=== PATIENT | male | born 1940 | race Caucasian/White ===

== ENCOUNTER 2019-01-05 17:31 | Inpatient (IN) | payer OTHER, MEDICARE ==
[2019-01-05 19:50] LABS: Absolute Lymphocytes (CBC) 0.6 K/uL (0.7-4.9); Absolute Monocytes 0.5 K/uL (0.1-1.3); Absolute Neutrophil 3.1 K/uL (1.8-8.0); Basophils % 0.2 % (0-1.3); Eosinophils % 0.1 % (0-4.4); Hematocrit 31.1 % (39.6-49.0); MPV 9.3 fL (7.6-11.3); Monocytes % 12.2 % (3.3-12.3); RBC Red Blood Cell Count 3.21 M/uL (4.33-5.43)
[2019-01-05] MEDS ORDERED: ONDANSETRON 4 MG/2 ML VIAL ONE (19:56)
[2019-01-05] MEDS ORDERED: NA CHLORIDE 0.9% 500 ML ONE ×2 (19:56→23:11)
[2019-01-05 20:28] LABS: Albumin 3.2 g/dL (3.4-5.0); Bilirubin Direct 0.2 mg/dL (0-0.2); Bilirubin Total 0.4 mg/dL (0.2-1.0); Potassium 3.9 mmol/L (3.5-5.1)
--- NOTE | 2019-01-05 20:43 | RAD REPORT ---
EXAM DESCRIPTION: RAD - Chest Single View - 01/05/2019 8:37 pm CLINICAL HISTORY: Fever, vomiting, shortness of breath COMPARISON: September 2016 TECHNIQUE: AP portable chest image was obtained 1934 hours . FINDINGS: Airspace consolidation is present in the right base obscuring the hemidiaphragm and partia lly obscuring right heart border. Patient has overall prominence of the interstitial markings through out both lung pang in part due to shallow inspiration. Significant failure or volume overload are d oubtful. Heart and vasculature are normal. No measurable pleural effusion and no pneumothorax. No acu te bony abnormality seen. No acute aortic findings suspected. IMPRESSION: Moderate-size right lung base pneumonia.
[2019-01-05 21:14] LABS: Urine White Blood Cell Casts OK
[2019-01-05 21:15] LABS: Anisocytosis 1+; Blood Morphology Comment NOTED (NOT SEEN); Platelet Estimate ADEQ
[2019-01-05] MEDS ORDERED: NA CHLORIDE 0.9% 250 ML ONE (21:36)
[2019-01-05] MEDS ORDERED: LEVALBUTEROL 1.25 MG/3 ML NEB ONE (21:36)
[2019-01-05] MEDS ORDERED: CEFTRIAXONE/SWI 1gm 1 GM/10 ML SYR ONE (21:36)
[2019-01-05] MEDS ORDERED: AZITHROMYCIN 500 MG INJ IVPB ONE (21:36)
--- NOTE | 2019-01-05 22:48 | ER ---
Nurse's Notes [facility] Name: King Hollingsworth Age: 78 yrs Sex: Male : 1940 Arrival Date: 01/05/2019 Time: 17:33 Bed 24 Private MD: Diagnosis: Pneumonia;Hypoxemia;Dehydration Presentation: 01/05 17:58 Presenting complaint: Patient states: Pt reports vomiting and 100.4 fever this morning. ea Pt reports he started feeling short of breath since yesterday. Transition of care: patient was not received from another setting of care. Onset of symptoms was January 05, 2019. Risk Assessment: Do you want to hurt yourself or someone else? Patient reports no desire to harm self or others. Initial Sepsis Screen: Does the patient meet any 2 criteria? RR > 20 per min. HR > 90 bpm. Yes Does the patient have a suspected source of infection? Yes: Productive cough/pneumonia. Care prior to arrival: None. 17:58 Method Of Arrival: Ambulatory ea 17:58 Acuity: OTTO 3 ea Triage Assessment: 18:07 General: Appears uncomfortable, Behavior is appropriate for age. Pain: Denies pain. ea Neuro: Level of Consciousness is awake, alert, obeys commands, Oriented to person, place, time, situation. Cardiovascular: Patient's skin is warm and dry. Respiratory: Airway is patent Respiratory effort is even, unlabored, Respiratory pattern is tachypnea. GI: Reports diarrhea. Derm: Skin is pale. Historical: - Allergies: 18:06 Indocin; ea - Home Meds: 18:06 latanoprost ophthalmic ophthalmic [Active]; Doxycycline Oral [Active]; ea - PMHx: 18:06 Hypertension; Hyperlipidemia; Diabetes - IDDM; BPH; ea - PSHx: 18:06 hip replacement; neck surgery; ea - Immunization history:: Adult Immunizations up to date. - Social history:: Smoking status: Patient/guardian denies using tobacco. - Ebola Screening: : No symptoms or risks identified at this time. - Family history:: not pertinent. - Hospitalizations: : No recent hospitalization is reported. Screenin:15 Abuse screen: Denies threats or abuse. Denies injuries from another. Nutritional ca1 screening: No deficits noted. Tuberculosis screening: No symptoms or risk factors identified. Fall Risk None identified. Assessment: 18:15 General: Appears in no apparent distress. comfortable, Behavior is calm, cooperative, ca1 appropriate for age. General: Reports chills for 0-12 hours, fever for 0-12 hours, Tmax at 100.4 this morning. PT is diagnosed with lung cancer and undergoing chemotherapy. Last chemo session was 2 weeks ago. Pt instructed to visit the ER for any fever and chills. . Pain: Pain: Denies pain. Pain: Pain began pt as arthritic pains that is tolerable. Neuro: Level of Consciousness is awake, alert, obeys commands, Oriented to person, place, time, situation. Cardiovascular: Heart tones S1 S2 present Capillary refill < 3 seconds Patient's skin is warm and dry. Respiratory: Reports shortness of breath on exertion Airway is patent Respiratory effort is even, unlabored, Respiratory pattern is regular, symmetrical, Breath sounds are clear bilaterally. GI: Abdomen is flat, non-distended, Bowel sounds present X 4 quads. Abd is soft and non tender X 4 quads. Reports nausea, vomiting, loose stool this morning. : No deficits noted. No signs and/or symptoms were reported regarding the genitourinary system. EENT: No deficits noted. No signs and/or symptoms were reported regarding the EENT system. Derm: Skin is fragile, Skin is dry, Skin is pale, Skin temperature is warm. Musculoskeletal: Circulation, motion, and sensation intact. Capillary refill < 3 seconds. 19:10 Reassessment: Patient appears in no apparent distress at this time. Patient and/or ca1 family updated on plan of care and expected duration. Pain level reassessed. Patient is alert, oriented x 3, equal unlabored respirations, skin warm/dry/pink. 20:05 Reassessment: Patient appears in no apparent distress at this time. Patient and/or ca1 family updated on plan of care and expected duration. Pain level reassessed. Patient is alert, oriented x 3, equal unlabored respirations, skin warm/dry/pink. 21:00 Reassessment: Patient appears in no apparent distress at this time. Patient and/or ca1 family updated on plan of care and expected duration. Pain level reassessed. Patient is alert, oriented x 3, equal unlabored respirations, skin warm/dry/pink. Pt from CT scan. 21:59 Reassessment: Patient appears in no apparent distress at this time. Patient and/or ca1 family updated on plan of care and expected duration. Pain level reassessed. Patient is alert, oriented x 3, equal unlabored respirations, skin warm/dry/pink. Pt went to restroom twice since arrival to ER. Pt reports of having loose yellow stool at each visit to restroom. 22:50 Reassessment: Patient appears in no apparent distress at this time. Patient and/or ca1 family updated on plan of care and expected duration. Pain level reassessed. Patient is alert, oriented x 3, equal unlabored respirations, skin warm/dry/pink. Pt did not visit restroom for loose stool as of this time. 23:49 Reassessment: Dr. Novak at bedside. ca1 01/06 00:02 Reassessment: Called 2nd floor for report, receiving RN will call back. ca1 00:12 Reassessment: Patient appears in no apparent distress at this time. Patient and/or ca1 family updated on plan of care and expected duration. Pain level reassessed. Patient is alert, oriented x 3, equal unlabored respirations, skin warm/dry/pink. 00:20 Reassessment: Pt stable, alert and oriented x 4, ambulatory. ca1 Vital Signs: 01/05 18:06 BP 100 / 60; Pulse 118; Resp 24; Temp 98.8; Pulse Ox 91% on R/A; Weight 73.48 kg; ea Height 5 ft. 9 in. (175.26 cm); Pain 0/10; 19:00 BP 134 / 78; Pulse 112; Resp 21; Pulse Ox 98% on R/A; ca1 20:00 BP 127 / 85; Pulse 110; Resp 19; Pulse Ox 95% on R/A; ca1 21:00 BP 127 / 79; Pulse 114; Resp 21; Pulse Ox 97% on R/A; ca1 22:01 BP 127 / 83; Pulse 115; Resp 20; Pulse Ox 98% on R/A; ca1 22:45 BP 120 / 66; Pulse 119; Resp 22; Pulse Ox 95% on R/A; ca1 22:45 BP 105 / 72; Pulse 115; Resp 22; Pulse Ox 95% on R/A; ca1 23:15 BP 101 / 64; Pulse 116; Resp 22; Pulse Ox 92% on R/A; ca1 23:40 BP 116 / 59; Pulse 103; Resp 21; Temp 98.3; Pulse Ox 98% on 2 lpm NC; ca1 01/06 00:12 BP 128 / 68; Pulse 102; Resp 19; Pulse Ox 95% on 2 lpm NC; ca1 00:19 BP 123 / 69; Pulse 106; Resp 19; Pulse Ox 98% on 2 lpm NC; ca1 01/05 18:06 Body Mass Index 23.92 (73.48 kg, 175.26 cm) ED Course: 01/05 17:33 Patient arrived in ED. rg4 18:00 Triage completed. ea 18:07 Kaley Lott, RN is Primary Nurse. ca1 18:10 Arm band placed on right wrist. ca1 18:15 Patient has correct armband on for positive identification. Bed in low position. Call ca1 light in reach. Side rails up X 1. Pulse ox on. NIBP on. Warm blanket given. 19:00 Raffy Lopez MD is Attending Physician. rn 19:43 Inserted saline lock: 22 gauge in left antecubital area, using aseptic technique. ca1 ,using aseptic technique. Alin Clements RN. 19:45 Initial lab(s) drawn, by ED staff, sent to lab. First set of blood cultures drawn. ca1 20:00 Second set of blood cultures drawn by Nando Javier. ca1 20:37 XRAY Chest (1 view) In Process Unspecified. EDMS 22:00 Abdomen In Process Unspecified. EDMS 22:47 Karlos Novak MD is Hospitalizing Provider. rn 01/06 00:05 No provider procedures requiring assistance completed. Patient admitted, IV remains in ca1 place. Administered Medications: 01/05 19:30 Drug: NS 0.9% 500 ml Route: IV; Rate: bolus; Site: left forearm; ca1 20:15 Follow up: IV Status: Completed infusion ca1 19:31 Drug: Zofran 4 mg Route: IVP; Site: left forearm; ca1 20:30 Follow up: Response: No adverse reaction; Nausea is decreased ca1 21:20 Drug: Xopenex 1.25 mg Route: Inhalation; rv 21:30 Drug: Rocephin - (cefTRIAXone) 1 grams Route: IVPB; Infused Over: 30 mins; Site: left rv forearm; 22:15 Follow up: IV Status: Completed infusion; IVP per pharmacy protocol ca1 23:51 Follow up: Response: No adverse reaction ca1 21:35 Drug: Zithromax 500 mg Route: IVPB; Infused Over: 1 hrs; Site: left forearm; rv 22:30 Follow up: Response: No adverse reaction; IV Status: Completed infusion ca1 23:03 Drug: NS 0.9% 500 ml Route: IV; Rate: bolus; Site: left forearm; ca1 23:52 Follow up: Response: No adverse reaction; IV Status: Completed infusion ca1 Outcome: 22:48 Decision to Hospitalize by Provider. rn 01/06 00:21 Admitted to Med/surg accompanied by nurse, via wheelchair, room 230, with chart, Report ca1 called to Nicole Montana RN 00:21 Condition: stable ca1 00:48 Patient left the ED. ca1 Signatures: Dispatcher [employer] EDMS Raffy Lopez MD MD rn Garcia, Rubi rg4 Oliva Murray RN Alin Cochran ea, RN RN rv AcKaley angulo RN RN ca1 Corrections: (The following items were deleted from the chart) 01/05 21:59 21:53 Reassessment: Patient appears in no apparent distress at this time. Patient ca1 and/or family updated on plan of care and expected duration. Pain level reassessed. Patient is alert, oriented x 3, equal unlabored respirations, skin warm/dry/pink. Pt from CT scan ca1
--- NOTE | 2019-01-05 22:48 | EDPHYS ---
Physician Documentation [facility] Name: King Hollingsworth Age: 78 yrs Sex: Male : 1940 Arrival Date: 01/05/2019 Time: 17:33 Bed 24 Private MD: ED Physician Raffy Lopez HPI: 01/05 19:28 This 78 yrs old Male presents to ER via Ambulatory with complaints of Fever, rn Vomiting. 19:28 The patient reports fever, not measured (subjective). Onset: The symptoms/episode rn began/occurred today. Modifying factors: there are no obvious modifying factors. Severity of symptoms: At their worst the symptoms were mild in the emergency department the symptoms are unchanged. The patient has not experienced similar symptoms in the past. The patient has not recently seen a physician. Reports subjective fever, vomiting, cough, sob, reports last chemo for lung cancer 2 weeks ago at [place]. No abd pain. Reports feels weak and dehydrated.. Historical: - Allergies: 18:06 Indocin; ea - Home Meds: 18:06 latanoprost ophthalmic ophthalmic [Active]; Doxycycline Oral [Active]; ea - PMHx: 18:06 Hypertension; Hyperlipidemia; Diabetes - IDDM; BPH; ea - PSHx: 18:06 hip replacement; neck surgery; ea - Immunization history:: Adult Immunizations up to date. - Social history:: Smoking status: Patient/guardian denies using tobacco. - Ebola Screening: : No symptoms or risks identified at this time. - Family history:: not pertinent. - Hospitalizations: : No recent hospitalization is reported. ROS: 19:28 Constitutional: + fever and chills Eyes: Negative for injury, pain, redness, and internal carver, Neck: Negative for injury, pain, and swelling, Cardiovascular: Negative for chest pain, palpitations, and edema, Respiratory: + cough and sob Abdomen/GI: + nausea/vomiting MS/Extremity: Negative for injury and deformity, Skin: Negative for injury, rash, and discoloration, Neuro: Negative for headache,numbness, tingling, and seizure. Exam: 19:28 Constitutional: This is a well developed, well nourished patient who is awake, alert, rn and in no acute distress. Head/Face: Normocephalic, atraumatic. ENT: dry MM Cardiovascular: Tachycardic, regular, no murmur Respiratory: + mild tachypnea with dimnished breath sounds bilateral bases Abdomen/GI: soft, non-tender MS/ Extremity: Pulses equal, no cyanosis. Neurovascular intact. Full, normal range of motion. Equal circumference. Neuro: Awake and alert, GCS 15, oriented to person, place, time, and situation. Cranial nerves II-XII grossly intact. Motor strength 4/5 in all extremities. Sensory grossly intact Vital Signs: 18:06 BP 100 / 60; Pulse 118; Resp 24; Temp 98.8; Pulse Ox 91% on R/A; Weight 73.48 kg; ea Height 5 ft. 9 in. (175.26 cm); Pain 0/10; 19:00 BP 134 / 78; Pulse 112; Resp 21; Pulse Ox 98% on R/A; ca1 20:00 BP 127 / 85; Pulse 110; Resp 19; Pulse Ox 95% on R/A; ca1 21:00 BP 127 / 79; Pulse 114; Resp 21; Pulse Ox 97% on R/A; ca1 22:01 BP 127 / 83; Pulse 115; Resp 20; Pulse Ox 98% on R/A; ca1 22:45 BP 120 / 66; Pulse 119; Resp 22; Pulse Ox 95% on R/A; ca1 22:45 BP 105 / 72; Pulse 115; Resp 22; Pulse Ox 95% on R/A; ca1 23:15 BP 101 / 64; Pulse 116; Resp 22; Pulse Ox 92% on R/A; ca1 23:40 BP 116 / 59; Pulse 103; Resp 21; Temp 98.3; Pulse Ox 98% on 2 lpm NC; ca1 01/06 00:12 BP 128 / 68; Pulse 102; Resp 19; Pulse Ox 95% on 2 lpm NC; ca1 00:19 BP 123 / 69; Pulse 106; Resp 19; Pulse Ox 98% on 2 lpm NC; ca1 01/05 18:06 Body Mass Index 23.92 (73.48 kg, 175.26 cm) ea MDM: 01/05 19:00 Patient medically screened. rn 22:46 Differential diagnosis: viral Infection, bacterial infection, pneumonia. Data reviewed: rn vital signs, nurses notes, lab test result(s), radiologic studies, CT scan, plain films, and as a result, I will admit patient. Counseling: I had a detailed discussion with the patient and/or guardian regarding: the historical points, exam findings, and any diagnostic results supporting the discharge/admit diagnosis, lab results, radiology results, the need for further work-up and treatment in the hospital. 22:47 Response to treatment: the patient's symptoms have mildly improved after treatment. advisory intern orders: after a detailed discussion of the patient's condition and case, the admit orders are written by me. 01/05 19:11 Order name: Basic Metabolic Panel; Complete Time: 20:58 rn 01/05 19:11 Order name: CBC with Diff; Complete Time: 21:36 rn 01/05 19:11 Order name: Hepatic Function; Complete Time: 20:58 rn 01/05 19:11 Order name: Lipase; Complete Time: 20:58 rn 01/05 19:11 Order name: Flu; Complete Time: 20:58 rn 01/05 19:11 Order name: Blood Culture Adult (2) rn 01/05 19:11 Order name: XRAY Chest (1 view); Complete Time: 20:58 rn 01/05 19:11 Order name: Procalcitonin; Complete Time: 20:58 rn 01/05 21:15 Order name: CBC Smear Scan; Complete Time: 21:36 EDMS 01/05 21:37 Order name: Abdomen EDNE 01/05 19:11 Order name: IV Saline Lock; Complete Time: 19:43 rn 01/05 19:11 Order name: Labs collected and sent; Complete Time: 19:43 rn Administered Medications: 19:30 Drug: NS 0.9% 500 ml Route: IV; Rate: bolus; Site: left forearm; ca1 20:15 Follow up: IV Status: Completed infusion ca1 19:31 Drug: Zofran 4 mg Route: IVP; Site: left forearm; ca1 20:30 Follow up: Response: No adverse reaction; Nausea is decreased ca1 21:20 Drug: Xopenex 1.25 mg Route: Inhalation; rv 21:30 Drug: Rocephin - (cefTRIAXone) 1 grams Route: IVPB; Infused Over: 30 mins; Site: left rv forearm; 22:15 Follow up: IV Status: Completed infusion; IVP per pharmacy protocol ca1 23:51 Follow up: Response: No adverse reaction ca1 21:35 Drug: Zithromax 500 mg Route: IVPB; Infused Over: 1 hrs; Site: left forearm; rv 22:30 Follow up: Response: No adverse reaction; IV Status: Completed infusion ca1 23:03 Drug: NS 0.9% 500 ml Route: IV; Rate: bolus; Site: left forearm; ca1 23:52 Follow up: Response: No adverse reaction; IV Status: Completed infusion ca1 Disposition: 01/05/19 22:48 Hospitalization ordered by Karlos Novak for Inpatient Admission. Preliminary diagnosis are Pneumonia, Hypoxemia, Dehydration. - Bed requested for Telemetry/MedSurg (Inpatient). - Status is Inpatient Admission. ca1 - Condition is Stable. - Problem is new. - Symptoms have improved. UTI on Admission? No Signatures: Dispatcher [employer] EDNE Raffy Lopez MD MD rn Garcia, Cindy RN JENNA cg Oliva Murray RN Alin Cochran ea RN RN rv Acob, Kaley RN RN ca1 Corrections: (The following items were deleted from the chart) 21:37 19:12 Abdomen Pelvis W Con+CT.RAD.BRZ ordered. [facility] EDNE 23:54 22:48 Hospitalization Ordered by Karlos Novak MD for Inpatient Admission. Preliminary cg diagnosis is Pneumonia; Hypoxemia; Dehydration. Bed requested for Telemetry/MedSurg (Inpatient). Status is Inpatient Admission. Condition is Stable. Problem is new. Symptoms have improved. UTI on Admission? No. rn 01/06 00:48 01/05 23:54 01/05/2019 22:48 Hospitalization Ordered by Karlos Novak MD for Inpatient ca1 Admission. Preliminary diagnosis is Pneumonia; Hypoxemia; Dehydration. Bed requested for Telemetry/MedSurg (Inpatient). Status is Inpatient Admission. Condition is Stable. Problem is new. Symptoms have improved. UTI on Admission? No. cg
--- NOTE | 2019-01-06 00:16 | P.HP ---
Certification for Inpatient Patient admitted to: Inpatient With expected LOS: >2 Midnights Practitioner: I am a practitioner with admitting privileges, knowledge of patient current condition, hospital course, and medical plan of care. Services: Services provided to patient in accordance with Admission requirements found in Title 42 Section 412.3 of the Code of Federal Regulations Patient History Date of Service: 01/06/19 Reason for admission: pneumonia History of Present Illness: Mr Hollingsworth is a 78 years old male with history of DM II, lung cancer on chemotherapy treatment, last round was about 2 weeks ago, he came to ED complaining of fever, nausea and vomiting, SOB and cough. He denied any chest pain. In ED, his temp was 98.8F, O2 sat 91% on RA, BP on the lower side, tachycardic. CXR shows right lower lobe pneumonia. CT abd/pelvis shows no acute abnormalities. Allergies indomethacin [From Indocin] Adverse Reaction (Verified 11/26/14 15:45) Shortness of breath indomethacin sodium [From Indocin] Adverse Reaction (Verified 11/26/14 15:45) Shortness of breath Home medications list reviewed: Yes Home Medications: Finasteride [Proscar*] 5 mg PO DAILY 11/26/14 Losartan Potassium [Cozaar] 100 mg PO DAILY WITH BREAKFAST 11/26/14 Lovastatin [Mevacor] 20 mg PO BEDTIME 11/26/14 Methotrexate Sodium [Trexall] 20 mg PO EVERY 7TH DAY 11/26/14 Metoprolol Succinate [Toprol Xl*] 100 mg PO BID 11/26/14 Mineral Oil/Petrolatum,White [Lacri-Lube S.o.p. Ointment] 3.5 gm OP BEDTIME 07/02 Polysorbate 80/Glycerin [Refresh Dry Eye Therapy Drops] 1 each OP QID 11/26/14 Rabeprazole Sodium [Aciphex] 20 mg PO DAILY 11/26/14 hydroCHLOROthiazide [Hydrodiuril] 25 mg PO DAILY 11/26/14 Cephalexin [Keflex] 500 mg PO DAILY #14 cap 12/01/14 Tamsulosin [Flomax] 0.4 mg PO DAILY #14 cap 12/01/14 Hydrocodone 7.5/APAP 325 [[place] 7.5/325 mg] 1 tab PO Q6H PRN #50 tab 12/02/14 Iron/FA/Vit B-Com W/C [Hemocyte Plus*] 1 tab PO DAILY 21 Days tab 12/02/14 Warfarin Sodium [Coumadin*] 4 mg PO DAILY 24 Days tab 12/02/14 - Past Medical/Surgical History Diabetic: Yes -: hypertension -: arthritis -: prediabetis -: lung cancer -: left hip replacement -: neck surg -: skin cancer to nose - Family History Family History: Reviewed- Non-Contributory - Social History Smoking Status: Former smoker Alcohol use: No CD- Drugs: No Caffeine use: Yes Place of Residence: Home Review of Systems 10-point ROS is otherwise unremarkable Physical Examination - Physical Exam General: Alert, In no apparent distress HEENT: Atraumatic, PERRLA, Mucous membr. moist/pink, EOMI, Sclerae nonicteric Neck: Supple, 2+ carotid pulse no bruit, No LAD, Without JVD or thyroid abnormality Respiratory: Diminished, Crackles/rales (right base) Cardiovascular: Normal S1 S2, No gallops Gastrointestinal: Normal bowel sounds, No tenderness Musculoskeletal: No tenderness Integumentary: No rashes Neurological: Normal speech, Normal strength at 5/5 x4 extr, Normal tone, Normal affect Lymphatics: No axilla or inguinal lymphadenopathy - Studies Laboratory Data (last 24 hrs) 01/05/19 20:00: Sodium 138, Potassium 3.9, BUN 30 H, Creatinine 1.51 H, Glucose 149 H, Total Bilirubin 0.4, AST 33, ALT 29, Alkaline Phosphatase 82, Lipase 240 01/05/19 19:45: WBC 4.2 L, Hgb 10.2 L, Hct 31.1 L, Plt Count 109 L Microbiology Data (last 24 hrs): 01/05/19 19:40 Nasopharnyx Influenza Type A Antigen Screen - Final 01/05/19 19:40 Nasopharnyx Influenza Type B Antigen Screen - Final Assessment and Plan - Problems (Diagnosis) (1) Pneumonia Current Visit: Yes Status: Acute Qualifiers: Pneumonia type: due to unspecified organism Laterality: right Lung location: lower lobe of lung Qualified Code(s): J18.1 - Lobar pneumonia, unspecified organism (2) Lung cancer Current Visit: Yes Status: Acute Qualifiers: Laterality: unspecified laterality Lung location: unspecified part of lung Qualified Code(s): C34.90 - Malignant neoplasm of unspecified part of unspecified bronchus or lung (3) Diabetes mellitus Current Visit: Yes Status: Acute Qualifiers: Diabetes mellitus type: type 2 Diabetes mellitus terminal operator insulin use: without terminal operator use Diabetes mellitus complication status: with unspecified complications Qualified Code(s): E11.8 - Type 2 diabetes mellitus with unspecified complications (4) BPH (benign prostatic hyperplasia) Current Visit: Yes Status: Acute Qualifiers: Lower urinary tract symptom presence: unspecified whether lower urinary tract symptoms present Qualified Code(s): N40.0 - Benign prostatic hyperplasia without lower urinary tract symptoms - Plan Will admit the patient due to pneumonia. influenza screening is negative. Will order IV Rocephin and Azithromycin, IV fluids. Continue SSI for BS control. - Advance Directives Does patient have a Living Will: Yes Does patient have a Durable POA for Healthcare: Yes - Code Status/Comfort Care Code Status Assessed: Yes Code Status: Full Code
[2019-01-06] MEDS ORDERED: ONDANSETRON 4 MG/2 ML VIAL IV PRN (00:35)
[2019-01-06] MEDS ORDERED: ACETAMINOPHEN 500 MG TAB PO PRN (00:35)
[2019-01-06] MEDS: NA CHLORIDE 0.9% 1,000 ML IV SCH ×4 (01:27→20:35)
[2019-01-06 05:15] LABS: Absolute Lymphocytes (CBC) 0.6 K/uL (0.7-4.9); Absolute Monocytes 0.5 K/uL (0.1-1.3); Absolute Neutrophil 1.7 K/uL (1.8-8.0); Basophils % 0.2 % (0-1.3); Eosinophils % 0.1 % (0-4.4); Hematocrit 23.2 % (39.6-49.0); Lymphocytes % 21.9 % (15.3-44.8); MPV 9.6 fL (7.6-11.3); Monocytes % 17.8 % (3.3-12.3)
[2019-01-06 05:44] LABS: Potassium 3.4 mmol/L (3.5-5.1)
[2019-01-06 05:45] LABS: Magnesium 0.6 mg/dL (1.8-2.4)
[2019-01-06] MEDS ORDERED: MAGNESIUM 50% 3 GM in NA CHLORIDE 0.9% 100 ML IV ONE (05:52)
[2019-01-06] MEDS ORDERED: POTASSIUM CL SA 10 MEQ TAB PO ONE (05:53)
[2019-01-06 06:51] LABS: Urine Appearance CLEAR; Urine Blood NEGATIVE (NEG); Urine Color YELLOW; Urine Glucose NEGATIVE (NEG); Urine Protein TRACE (NEG); Urine Urobilinogen 0.2 mg/dL (0.2-1.0); Urine pH 5.5 (5.0-7.0)
[2019-01-06 06:59] LABS: Urine Bilirubin NEGATIVE (NEG)
[2019-01-06 07:00] LABS: Urine Microscopic Reflex ORDER UMIC
[2019-01-06] MEDS: INSULIN -REGULAR HUMAN 50 UNIT/0.5 ML ML SQ SCH ×4 (07:30→21:00)
[2019-01-06 07:33] LABS: Urine Bacteria <20 /HPF (NONE SEEN); Urine Culture Reflex Order NOT NEEDED; Urine RBC <5 /HPF (NONE SEEN)
[2019-01-06] MEDS ORDERED: CEFTRIAXONE 1 GM/NS 50 ML 1 GM/50 ML BAG IV SCH (09:00)
[2019-01-06] MEDS: CEFTRIAXONE/SWI 1gm 1 GM/10 ML SYR IV SCH (10:30)
[2019-01-06] MEDS: AZITHROMYCIN IV 500 MG in NA CHLORIDE 0.9% 250 ML IVPB SCH (10:30)
--- NOTE | 2019-01-06 11:19 | RAD REPORT ---
EXAM DESCRIPTION: CT - Abdomen Pelvis Wo Contrast - 01/05/2019 10:31 pm CLINICAL HISTORY: The patient is 78 years old and is Male; NAUSEA / VOMITING TECHNIQUE: Axial computed tomography images of the abdomen and pelvis without intravenous contrast. Sagittal and coronal reformatted images were created and reviewed. This CT exam was performed usi ng one or more of the following dose reduction techniques: automated exposure control, adjustment o f the mA and/or kV according to patient size, and/or use of iterative reconstruction technique. COMPARISON: None. FINDINGS: LUNG BASES: Scattered bilateral lower lobe calcified left renal mass. Advanced bibasilar chronic lung changes. PLEURAL SPACE: Somewhat loculated right pleural effusion and adjacent atelectasis. ABDOMEN: LIVER: Unremarkable. GALLBLADDER AND BILE DUCTS: Unremarkable. No calcified stones. No ductal dilation. PANCREAS: Unremarkable. No ductal dilation. SPLEEN: Unremarkable. No splenomegaly. ADRENALS: Unremarkable. No mass. KIDNEYS AND URETERS: Bilateral perinephric fat stranding and 8 mm right upper pole cyst. STOMACH AND BOWEL: Contrast is seen throughout the small bowel and large bowel. No obstruction or perforation. No mucosal thickening. PELVIS: APPENDIX: The appendix is seen and is within normal limits BLADDER: Unremarkable. No stones. REPRODUCTIVE: Evidence of prior tubal ligation, this single sagittal image. ABDOMEN and PELVIS: INTRAPERITONEAL SPACE: Unremarkable. No free air. No significant fluid collection. BONES/JOINTS: Diffuse osteopenia and small retrolisthesis of L4 on L5. Evidence of prior bilateral hip arthroplasty. No acute fracture. No dislocation. SOFT TISSUES: Bilateral fat-containing inguinal hernias. Fat-containing umbilical hernia. VASCULATURE: Unremarkable. No abdominal aortic aneurysm. LYMPH NODES: Partial visualization of bihilar and mediastinal calcified lymph nodes. Multiple calcified pelvic lymph nodes. IMPRESSION: 1. No acute abdominal or pelvic abnormality. 2. Right lower lobe consolidation and air bronchogram concerning for pneumonia, atelectasis or scarri ng. Correlate for signs of infection. Loculated right pleural effusion and advanced bibasilar chronic lung changes. 3. Bilateral perinephric stranding and 8 mm right upper pole cyst. 4. Evidence of prior granulomatous disease. 5. Diffuse osteopenia and small retrolisthesis of L4 on L5. 6. Bilateral hip arthroplasty. Electronically signed by: Brian Will DO 01/05/2019 10:19 PM CDT Due to temporary technical issues with the PACS/Fluency reporting system, reports are being signed by the in house radiologist as a courtesy to ensure prompt reporting. The interpreting radiologist is f ully responsible for the content of the report.
[2019-01-06] MEDS: POLYVINYL ALCOHOL 1.4% 15 ML EACH EYE SCH ×3 (12:38→21:26)
[2019-01-06 12:39] LABS: Hematocrit 24.8 % (39.6-49.0)
[2019-01-06 16:01] LABS: Magnesium 1.7 mg/dL (1.8-2.4); Potassium 4.5 mmol/L (3.5-5.1)
[2019-01-06] MEDS: TIOTROPIUM (SPIRIVA) INHALER IH SCH (17:45)
[2019-01-06] MEDS ORDERED: MAGNESIUM SULFATE 1 gm IVPB 1 GM/100 ML BAG IV ONE (18:00)
[2019-01-06] MEDS ORDERED: HOME MED 1 EA UNK (Latanoprost/Pf [Latanoprost 0.005% Eye Drop] 1 DROP) RIGHT EYE SCH (21:00)
--- NOTE | 2019-01-06 21:22 | PN ---
Date of Progress Note: 01/06/2019 Subjective: The patient was seen and examined. Chart reviewed and case discussed with RN. The maura ent still having some cough and shortness of breath, requiring oxygen earlier. Medications: List reviewed. Code Status: Full code. Physical Examination: Vital Signs: Temperature 97.8, heart rate 105, blood pressure 124/57, respirations 18, O2 94% on venancio m air. General: Awake, alert, oriented x3. Elderly male, ill appearing, in some mild respiratory distress. CV: S1, S2. Peripheral pulses present. Regular rate and rhythm. Respiratory: Diminished breath sounds. Rhonchi present. No wheezing or stridor Gastrointestinal: Abdomen is soft, nontender, nondistended. Positive bowel sounds. Extremities: No clubbing, cyanosis, or edema. Neurologic: Nonfocal. Laboratory Data: Sodium 141, potassium 3.4, repeat potassium is 4.5, chloride 108, CO2 23, BUN 25, c reatinine 1.27, calcium 7, magnesium 0.6, repeat is 1.7. WBC 2.9, H and H 7.6 and 23.9, repeat is 8. 1, platelets 87, neutrophils 60%. Influenza screen is negative. Blood cultures are pending. Assessment And Plan: A 78-year-old male with: 1.Pneumonia, it is in the right lower lobe. We will continue with the IV antibiotics and follow up on cultures. 2.Hypomagnesemia. We will replace and monitor. 3.Hypokalemia. We will replace and monitor. 4.History of lung cancer, currently on chemotherapy. The patient's oncologist is at the [place]. The lazaro rené's nephew requesting transfer to the [place], which has been initiated. We will transfer once bed is available and the patient has been accepted. 5.Diabetes mellitus type 2 without long-term use of insulin with hyperglycemia. We will continue sl iding scale insulin. Monitor Accu-Cheks. 6.Benign prostatic hypertrophy. Resume home medications as appropriate. 7.Essential hypertension, stable. Continue hydrochlorothiazide and metoprolol. The patient is also on Cozaar. DVT prophylaxis addressed. Plan: Transfer to [place], once accepted. /ОЛЬГА Voice ID: [id number] Report ID: [id number]
[2019-01-06] MEDS: ATORVASTATIN 10 MG TAB PO SCH (21:25)
[2019-01-06] MEDS: PANTOPRAZOLE 40MG TABLET PO SCH (21:25)
[2019-01-06] MEDS: METOPROLOL XL 50 MG TAB PO SCH (21:27)
[2019-01-07 01:13] VITALS: BMI 23.6
[2019-01-07 05:55] LABS: Potassium 4.1 mmol/L (3.5-5.1)
[2019-01-07 06:10] LABS: Absolute Lymphocytes (CBC) 0.7 K/uL (0.7-4.9); Absolute Monocytes 0.8 K/uL (0.1-1.3); Absolute Neutrophil 1.7 K/uL (1.8-8.0); Basophils % 0.2 % (0-1.3); Eosinophils % 0.4 % (0-4.4); Hematocrit 23.6 % (39.6-49.0); Lymphocytes % 22.8 % (15.3-44.8); MPV 9.8 fL (7.6-11.3); Monocytes % 24.3 % (3.3-12.3); RBC Red Blood Cell Count 2.45 M/uL (4.33-5.43)
[2019-01-07 06:30] LABS: Magnesium 1.7 mg/dL (1.8-2.4)
[2019-01-07] MEDS ORDERED: MAGNESIUM SULFATE 1 gm IVPB 1 GM/100 ML BAG IV ONE (06:40)
[2019-01-07] MEDS: NA CHLORIDE 0.9% 1,000 ML IV SCH ×2 (07:08→16:36)
[2019-01-07] MEDS: INSULIN -REGULAR HUMAN 50 UNIT/0.5 ML ML SQ SCH ×4 (07:30→21:00)
[2019-01-07 07:57] LABS: Platelet Estimate ADEQ
[2019-01-07 08:05] LABS: Anisocytosis 2+; Blood Morphology Comment NOTED (NOT SEEN); Macrocytosis SLIGHT
[2019-01-07] MEDS: TIOTROPIUM (SPIRIVA) INHALER IH SCH (09:00)
[2019-01-07] MEDS: CEFTRIAXONE/SWI 1gm 1 GM/10 ML SYR IV SCH (09:15)
[2019-01-07] MEDS: predniSONE 5 MG TAB PO SCH (09:15)
[2019-01-07] MEDS: LOSARTAN POTASSIUM 50 MG TABLET PO SCH (09:15)
[2019-01-07] MEDS: FINASTERIDE 5 MG TAB PO SCH (09:16)
[2019-01-07] MEDS: FOLIC ACID 1 MG TABLET PO SCH (09:16)
[2019-01-07] MEDS: hydroCHLOROthiazide 25 MG TAB PO SCH (09:16)
[2019-01-07] MEDS: METOPROLOL XL 50 MG TAB PO SCH ×2 (09:16→21:36)
[2019-01-07] MEDS: PANTOPRAZOLE 40MG TABLET PO SCH ×2 (09:17→21:37)
[2019-01-07] MEDS: POLYVINYL ALCOHOL 1.4% 15 ML EACH EYE SCH ×4 (09:17→21:37)
[2019-01-07] MEDS: AZITHROMYCIN IV 500 MG in NA CHLORIDE 0.9% 250 ML IVPB SCH (09:18)
[2019-01-07] MEDS ORDERED: SULFADIAZINE 500 MG PO SCH (11:00)
--- NOTE | 2019-01-07 11:03 | RAD REPORT ---
EXAM DESCRIPTION: Elodiat Pa And Lat (2 Views)01/07/2019 10:22 am CLINICAL HISTORY: Cough COMPARISON: January 05 FINDINGS: Small to moderate right pleural effusion is unchanged. Mild improvement in right and no si gnificant change in left pulmonary opacities. The heart is normal size
--- NOTE | 2019-01-07 13:20 | PN ---
Date of Progress Note: 01/07/2019 Subjective: The patient seen and examined. Chart reviewed and case discussed with RN. The patient states still having some cough. Overall, not really feeling better. Medications: List reviewed. Physical Examination: Vital Signs: Temperature 97.9, heart rate 95, blood pressure 130/67, respirations 18, O2 89% on 2 L via nasal cannula. General: Awake, alert, oriented x3. Elderly male, in some mild respiratory distress. CV: S1, S2. Regular rate and rhythm. Peripheral pulses present. Respiratory: Diminished breath sounds. No wheezing or stridor. Gastrointestinal: Abdomen is soft, nontender, nondistended. Positive bowel sounds. Extremities: No clubbing, cyanosis, or edema. Neurologic: Nonfocal. Laboratory Data: Sodium 142, potassium 4.1, chloride 114, CO2 20, BUN 16, creatinine 0.96, glucose 1 15, calcium 7.1, magnesium 1.7. WBC 3.2, H and H 7.8/23.6, platelets 134. C diff assay is pending. Occult blood positive. The patient does have hemorrhoids. Blood cultures, no growth to date. Ches t x-ray shows small to moderate right pleural effusion unchanged, mild improvement in the right and n o significant change in the left pulmonary opacities, heart is normal in size. Assessment And Plan: A 78-year-old male with: 1.Pneumonia, right lower lobe. Chest x-ray personally reviewed, shows some improvement, left side s till shows opacity along with effusion on the x-ray. Cultures are negative. We will continue antibi otics for now and supplemental oxygen. 2.Hypomagnesemia. We will replace and monitor. 3.Hypokalemia, corrected. 4.History of lung cancer, on chemotherapy. The patient's oncologist is at the [place]. Transfer has bee n requested by the family, which is undergoing. 5.Diabetes mellitus type 2 without long-term use of insulin with hyperglycemia. Continue with slidi ng scale insulin and monitor Accu-Cheks. 6.Benign prostatic hypertrophy. We will resume medications. Currently on finasteride. 7.Essential hypertension, stable. 8.Deep vein thrombosis prophylaxis, on SCDs. 9.Normocytic, normochromic anemia. Hemoglobin has been hovering around 8, dropped down to 7.8 today . Hemoccult is positive. The patient does have hemorrhoids. Currently, no GI is available. We fabio l continue to monitor. Transfuse as needed. /ОЛЬГА Voice ID: [id number] Report ID: [id number]
[2019-01-07] MEDS: ALBUTEROL 2.5 MG/3 ML NEB SOL NEB SCH (20:45)
[2019-01-07] MEDS: SULFASALAZINE 500 MG PO SCH (21:00)
[2019-01-07] MEDS: ATORVASTATIN 10 MG TAB PO SCH (21:37)
[2019-01-08] MEDS: ALBUTEROL 2.5 MG/3 ML NEB SOL NEB SCH ×3 (01:19→13:18)
[2019-01-08 06:59] LABS: Absolute Lymphocytes (CBC) 0.9 K/uL (0.7-4.9); Absolute Monocytes 0.9 K/uL (0.1-1.3); Absolute Neutrophil 1.6 K/uL (1.8-8.0); Basophils % 0.2 % (0-1.3); Eosinophils % 0.5 % (0-4.4); Hematocrit 24.4 % (39.6-49.0); Lymphocytes % 25.5 % (15.3-44.8); MPV 9.7 fL (7.6-11.3); Monocytes % 26.2 % (3.3-12.3); RBC Red Blood Cell Count 2.55 M/uL (4.33-5.43)
[2019-01-08] MEDS: INSULIN -REGULAR HUMAN 50 UNIT/0.5 ML ML SQ SCH ×2 (07:30→11:30)
[2019-01-08] MEDS: AZITHROMYCIN IV 500 MG in NA CHLORIDE 0.9% 250 ML IVPB SCH (08:19)
[2019-01-08] MEDS: CEFTRIAXONE/SWI 1gm 1 GM/10 ML SYR IV SCH (08:20)
[2019-01-08] MEDS: POLYVINYL ALCOHOL 1.4% 15 ML EACH EYE SCH ×2 (08:21→12:56)
[2019-01-08] MEDS: LOSARTAN POTASSIUM 50 MG TABLET PO SCH (08:22)
[2019-01-08] MEDS: PANTOPRAZOLE 40MG TABLET PO SCH (08:22)
[2019-01-08] MEDS: predniSONE 5 MG TAB PO SCH (08:23)
[2019-01-08] MEDS: METOPROLOL XL 50 MG TAB PO SCH (08:23)
[2019-01-08] MEDS: hydroCHLOROthiazide 25 MG TAB PO SCH (08:23)
[2019-01-08] MEDS: FOLIC ACID 1 MG TABLET PO SCH (08:23)
[2019-01-08] MEDS: SULFASALAZINE 500 MG PO SCH (08:24)
[2019-01-08] MEDS: TIOTROPIUM (SPIRIVA) INHALER IH SCH (08:51)
[2019-01-08] MEDS: FINASTERIDE 5 MG TAB PO SCH (08:52)
[2019-01-08] MEDS ORDERED: FUROSEMIDE 40 MG/4 ML VIAL IV SCH (09:00)
[2019-01-08] MEDS ORDERED: MAGNESIUM SULFATE 1 gm IVPB 1 GM/100 ML BAG IV ONE (09:00)
[2019-01-08] MEDS ORDERED: DOXYCYCLINE 50 MG PO SCH (09:00)
[2019-01-08 09:13] VITALS: O2SAT 97
[2019-01-08] MEDS ORDERED: D50W 25 GM/50 ML SYRINGE IV PRN (09:29)
[2019-01-08] MEDS ORDERED: GLUCAGON 1 MG/VIAL IM PRN (09:29)
[2019-01-08 14:35] VITALS: BP 139/61; TEMP 97.1
--- NOTE | 2019-01-08 15:18 | DS ---
Date of Discharge: 01/08/2019 Admitting Diagnoses: 1.Pneumonia, right lower lobe. 2.Lung cancer. 3.Diabetes mellitus type 2 without long-term use of insulin with hyperglycemia. 4.Benign prostatic hypertrophy. Discharge Diagnoses: 1.Acute respiratory distress, now weaned off oxygen secondary to pneumonia and lung cancer. 2.Right lower lobe pneumonia, improving. Chest x-ray shows improvement. 3.Hypomagnesemia, replaced. 4.Hypokalemia, corrected. 5.Lung cancer, currently on chemotherapy, follows at the [place]. 6.Diabetes mellitus type 2 without long-term use of insulin with hyperglycemia. 7.Bilateral pleural effusions, small to moderate. 8.Benign prostatic hypertrophy, on finasteride. 9.Essential hypertension. 10.Normocytic normochromic anemia. The patient does have hemorrhoids, willing to follow up with GI as an outpatient. Hospital Course: The patient is a 78-year-old male, comes in with pneumonia. The patient also found to be hypoxic around 91% on room air. He was started on supplemental oxygen. Chest x-ray showed ri ght lower lobe pneumonia, also had pleural effusions. The patient does have history of lung cancer a nd is currently on chemotherapy. Follows up with oncologist at the [place]. CT scan of the abdomen and p scarlet was unremarkable, did show bilateral perinephric stranding and 8 mm right upper pole cyst, gran ulomatous disease, osteopenia. The patient was started on IV antibiotics and IV fluids. The patient did not appear to be septic. Procalcitonin was negative. White blood cell count was low, likely du e to chemotherapy. He was also anemic and had thrombocytopenia. The patient did have some drop in h is hemoglobin as low as 7.6 and hemoccult was positive, however, he does have external hemorrhoids, w hich were bleeding. The patient's C diff assay was negative, blood cultures did not show any growth, and flu screen was also negative. The patient did not require any blood transfusions. He did well over the course of the hospital stay. His repeat chest x-ray showed improvement in the right side. He was no longer having significant cough and had diminished, and his shortness of breath improved. He was able to be weaned off oxygen. The patient was able to ambulate without significant dyspnea. He was then cleared for discharge. He was sent home in a stable condition. Activity: Fall precautions. Diet: Diabetic. Followup: Follow up with PCP in 2-3 days. [facility]. Return t o ER for worsening condition. Medications: As per medication reconciliation list. Physical Examination: General: Awake, alert, oriented, elderly male, frail. CV: S1, S2. Respiratory: Diminished breath sounds at the bases. Otherwise, moving air well bilaterally. Abdomen: Soft, nontender, nondistended. Positive bowel sounds. Extremities: No clubbing, cyanosis, or edema. Neurologic: Nonfocal. Time Spent: Total time spent discharging the patient was 36 minutes. /ОЛЬГА Voice ID: [id number] Report ID: [id number]
== END 2019-01-08 16:45 | disposition home or self-care (01) | DRG 194 ==
LOC: ER 17:31 → ERHOLD 23:56 → 2ND 01-06 00:23
PROVIDERS: ADMIT Internal Medicine; ATTEND Internal Medicine
DX: J18.9 Pneumonia, unspecified organism (principal); J91.8 Pleural effusion in other conditions classified elsewhere; C34.90 Malignant neoplasm of unspecified part of unspecified bronchus or lung; R09.02 Hypoxemia; R06.03 Acute respiratory distress; E83.42 Hypomagnesemia; E87.6 Hypokalemia; E11.65 Type 2 diabetes mellitus with hyperglycemia; N40.0 Benign prostatic hyperplasia without lower urinary tract symptoms; D64.9 Anemia, unspecified; K64.4 Residual hemorrhoidal skin tags; I10 Essential (primary) hypertension; Z96.642 Presence of left artificial hip joint; Z87.891 Personal history of nicotine dependence
CPT/HCPCS: 36415; 71045; 71046; 74176; 80048; 80076; 81003; 81015; 82274; 82962; 83690; 83735; 84132; 84145; 85014; 85018; 85025; 87040; 87205; 87493; 87804; 94640; 96361; 96365; 96375; 97116; 97162; 97166; 99285; J0456; J0696; J1940; J2405; J3475; J7030; J7512